=== PATIENT | male | born 2005 | race Hispanic/Latino ===

== ENCOUNTER 2024-02-24 11:58 | Emergency (ER) | payer SELFPAY ==
[~2024-02-24] VITALS: Ht 177.8 cm; Wt 104.3 kg
[2024-02-24 12:08] VITALS: PULSE 58; RESP 16; TEMP 97.6; O2SAT 100
[2024-02-24] MEDS ORDERED: PREDNISOLONE ACE5 M1 OS (13:25)
[2024-02-24] MEDS ORDERED: CYCLOPENTOLATE H2 ML OS (13:25)
[2024-02-24] MEDS: FLUORESCEIN SOD(OPTH) 1 MG STRP OP ONE (14:23)
[2024-02-24] MEDS: TETRACAINE HCL 0.5% OPTH SOLN 4 ML BTL OP ONE (14:23)
== END 2024-02-24 13:49 | disposition home or self-care (01) ==
LOC: ER 12:11
DX: H57.12 Ocular pain, left eye (principal); H20.9 Unspecified iridocyclitis; W20.8XXA Other cause of strike by thrown, projected or falling object, initial encounter; Y92.89 Other specified places as the place of occurrence of the external cause
CPT/HCPCS: 99283